=== PATIENT | female | born 1975 | race Caucasian/White ===

== ENCOUNTER → 2016-04-20 | Outpatient (CLI) | payer BC ==
[~2016-04-20] MED LIST: ADIPEX-P37.5 MG PO; GLUCOPHAGE500 MG/TAB PO; MULTI VITAMINS1 TAB PO
== END ==
LOC: MC.RAD 04-06 14:20
DX: Z12.31 Encounter for screening mammogram for malignant neoplasm of breast (principal)

== ENCOUNTER → 2018-03-14 | Outpatient (CLI) | payer BC | LOC: MC.RAD 01-28 11:00 | DX: Z12.31 Encounter for screening mammogram for malignant neoplasm of breast (principal) ==

== ENCOUNTER → 2020-04-26 | Outpatient (CLI) | payer BC | LOC: MC.RAD 09:58 | DX: Z12.31 Encounter for screening mammogram for malignant neoplasm of breast (principal) ==

== ENCOUNTER → 2023-07-15 | Outpatient (CLI) | payer BC | LOC: MC.RAD 12:48 | DX: R92.8 Other abnormal and inconclusive findings on diagnostic imaging of breast (principal) ==

== ENCOUNTER → 2024-01-17 | Outpatient (CLI) | payer BC | LOC: MC.RAD 08:43 | DX: N63.20 Unspecified lump in the left breast, unspecified quadrant (principal) ==